=== PATIENT | female | born 1980 | race Caucasian/White ===

== ENCOUNTER 2017-11-26 15:09 | Outpatient (CLI) | payer BC | END 2017-11-26 15:10 | disposition home or self-care (01) | LOC: BICULT 15:09 | PROVIDERS: ATTEND Family Medicine | DX: E04.1 Nontoxic single thyroid nodule (principal); E04.2 Nontoxic multinodular goiter; E07.9 Disorder of thyroid, unspecified | CPT/HCPCS: 76536 ==

== ENCOUNTER 2017-12-02 10:07 | Day surgery (SDC) | payer BC ==
[2017-12-02] MEDS ORDERED: Lidocaine 1% PF 5 ML VIAL ONE (10:32)
[2017-12-02 13:59] VITALS: BP 152/93; TEMP 98.2
--- NOTE | 2017-12-02 14:12 | ULT ---
SONOGRAPHIC GUIDED FINE NEEDLE ASPIRATION RIGHT THYROID LOBE MASS: Date: 12/02/17 HISTORY: Right thyroid lobe mass. FINDINGS: After explaining the procedure and answering all questions, limited sonographic imaging of the right thyroid lobe confirms complex mass at the medial margin. Sterile technique, buffered local anesthesia , sonographic guidance, and a medial approach were used to carefully advance a 25 gauge needle to the solid component of the complex mass. A total of four FNA passes were made. Tissue submitted to patho logy of evaluation. Postprocedure imaging shows no evidence of complication. The patient tolerated th e procedure well and was dismissed in good condition. IMPRESSION: Technically successful sonographic guided FNA right thyroid lobe mass. Pathology is pending. POS: KACIE
== END 2017-12-02 11:30 | disposition home or self-care (01) ==
LOC: ULT 10:07
PROVIDERS: ATTEND Family Medicine
PROC: 0GBH3ZX Excision of Right Thyroid Gland Lobe, Percutaneous Approach, Diagnostic (ICD-10-PCS; principal; 2017-12-02)
DX: E07.89 Other specified disorders of thyroid (principal); I10 Essential (primary) hypertension; K21.9 Gastro-esophageal reflux disease without esophagitis; F32.9 Major depressive disorder, single episode, unspecified; E66.01 Morbid (severe) obesity due to excess calories; Z79.899 Other long term (current) drug therapy; Z87.891 Personal history of nicotine dependence; Z68.42 Body mass index [BMI] 45.0-49.9, adult
CPT/HCPCS: 10022; 76942; 88173; J2001

== ENCOUNTER 2019-02-11 13:44 | Outpatient (CLI) | payer BC ==
--- NOTE | 2019-02-11 15:43 | ULT ---
THYROID ULTRASOUND: 02/11/19 PROVIDED CLINICAL HISTORY: Thyroid nodules. FINDINGS: Comparison is made with the study dated 11/26/17. The right thyroid lobe measures about 5.4 x 2 x 1.9 cm. There is a 2.4 cm cystic and solid nodule at the inferior pole of the right thyroid lobe appearing similar to the prior examination. There is an approximately 1 cm inferior pole cystic and solid nodule immediately adjacent to this larger nodule t hat appears stable. The left thyroid lobe measures about 4.4 x 1.8 x 1.7 cm. There is a isoechoic to slightly hypoechoic nodule involving the inferior pole of the left thyroid lobe that appears solid. This measures about 1.6 x 1.1 x 1.4 cm on the current study, slightly larger than on comparison examination. Additional s ubcentimeter nodules are seen. IMPRESSION: Redemonstration of bilateral thyroid nodules as described above. POS: OFF
== END 2019-02-11 13:45 | disposition home or self-care (01) ==
LOC: BICULT 13:44
PROVIDERS: ATTEND Otolaryngology Plastic Surgery within the Head & Neck
DX: E04.2 Nontoxic multinodular goiter (principal)
CPT/HCPCS: 76536

== ENCOUNTER 2019-06-05 12:27 | Outpatient (CLI) | payer BC ==
--- NOTE | 2019-06-05 13:23 | MMO ---
Bilateral MAMMO Bilat Screen [facility]. CLINICAL HISTORY: Patient is 39 years old and is seen for screening. The patient has the following family history of breast cancer: maternal grandmother. The patient has no personal history of cancer. VIEWS: The views performed were: bilateral craniocaudal with tomosynthesis and bilateral mediolateral oblique with tomosynthesis. This study has been interpreted with the assistance of computer-aided detection. MAMMOGRAM FINDINGS: There are scattered fibroglandular densities. There are no suspicious masses, suspicious calcifications, or new areas of architectural distortion. IMPRESSION: THERE IS NO MAMMOGRAPHIC EVIDENCE OF MALIGNANCY. A ROUTINE FOLLOW-UP MAMMOGRAM IN 1 YEAR IS RECOMMENDED. THE RESULTS OF THIS EXAM WERE SENT TO THE PATIENT. ACR BI-RADS Category 1 - Negative MAMMOGRAPHY NOTE: 1. A negative mammogram report should not delay a biopsy if a dominant of clinically suspicious mass is present. 2. Approximately 10% to 15% of breast cancers are not detected by mammography. 3. Adenosis and dense breasts may obscure an underlying neoplasm. Reported by: CHANEL RAY MD Electonically Signed: [id number]
== END 2019-06-05 12:28 | disposition home or self-care (01) ==
LOC: BICMAMMO 12:27 → ULT 12:28
PROVIDERS: ATTEND Family Medicine
DX: Z12.31 Encounter for screening mammogram for malignant neoplasm of breast (principal); R01.1 Cardiac murmur, unspecified; I08.3 Combined rheumatic disorders of mitral, aortic and tricuspid valves; Z80.3 Family history of malignant neoplasm of breast
CPT/HCPCS: 77063; 77067; 93306

== ENCOUNTER 2020-01-12 14:46 | Outpatient (CLI) | payer BC ==
--- NOTE | 2020-01-12 16:07 | ULT ---
LIMITED LEFT BREAST ULTRASOUND: 01/12/20 HISTORY: 39-year-old female with two separate palpable nodules at the 10 o'clock position of the left breast. FINDINGS: Correlation is made with mammogram same date Sonographic evaluation of the region of palpable abnormality at the 10 o'clock position of the left b reast, 6 cm from the nipple demonstrates an 8 x 3 x 5 mm septated cyst. A single abnormality is noted on the ultrasound. IMPRESSION: BIRADS 2: Benign Finding(s) Routine annual screening mammography (for women over age 40). POS: OFF
--- NOTE | 2020-01-12 16:19 | MMO ---
Left Breast MAMMO Unilat Diag [facility]. CLINICAL HISTORY: Patient is 39 years old and is seen for diagnostic exam. The patient has the following family history of breast cancer: maternal grandmother. The patient has no personal history of cancer. VIEWS: The views performed were: left craniocaudal with tomosynthesis; left mediolateral oblique with tomosynthesis; and left mediolateral with tomosynthesis. FILMS COMPARED: The present examination has been compared to prior imaging studies performed at [facility] on 06/05/2019 and 01/12/2020. This study has been interpreted with the assistance of computer-aided detection. MAMMOGRAM FINDINGS: There are scattered fibroglandular densities. There are benign appearing calcifications in the left breast. No mammo abnormality is seen at site of palpable concern (10:00). US shows a 8mm septated cyst. There are no suspicious masses, suspicious calcifications, or new areas of architectural distortion. IMPRESSION: THERE IS NO MAMMOGRAPHIC EVIDENCE OF MALIGNANCY. A ROUTINE FOLLOW-UP MAMMOGRAM IN 1 YEAR IS RECOMMENDED. THE RESULTS OF THIS EXAM WERE SENT TO THE PATIENT. ACR BI-RADS Category 2 - Benign finding MAMMOGRAPHY NOTE: 1. A negative mammogram report should not delay a biopsy if a dominant of clinically suspicious mass is present. 2. Approximately 10% to 15% of breast cancers are not detected by mammography. 3. Adenosis and dense breasts may obscure an underlying neoplasm. Reported by: MARIA TERESA BARRETT MD Electonically Signed: [id number]
== END 2020-01-12 14:47 | disposition home or self-care (01) ==
LOC: BICMAMMO 14:46
PROVIDERS: ATTEND Family Medicine
DX: N63.20 Unspecified lump in the left breast, unspecified quadrant (principal)
CPT/HCPCS: G0279

== ENCOUNTER 2021-07-03 09:26 | Outpatient (CLI) | payer BC | END 2021-07-03 09:27 | disposition home or self-care (01) | LOC: BICMAMMO 09:26 | PROVIDERS: ATTEND Family Medicine | DX: Z12.31 Encounter for screening mammogram for malignant neoplasm of breast (principal); Z80.3 Family history of malignant neoplasm of breast | CPT/HCPCS: 77063; 77067 ==

== ENCOUNTER 2021-07-03 17:15 | Emergency (ER) | payer BC ==
[2021-07-03] MEDS ORDERED: Metoprolol Tartrate 25 MG TAB ONE (18:36)
[2021-07-03 18:57] LABS: #Basophils 0.1 thou/uL (0.0-0.2); #Eosinphils 0.2 thou/uL (0.0-0.7); #Lymphocytes 3.1 thou/uL (1.20-3.40); #Monocytes 0.6 thou/uL (0.11-0.59); #Neutrophils 6.9 thou/uL (1.40-6.50); %Basophils 0.7 % (0.0-1.0); %Eosinophils 1.6 % (0.0-10.0); %Lymphocytes 28.7 % (21.0-51.0); %Monocytes 5.6 % (0.0-10.0); %Neutrophils 63.5 % (42.0-75.0); Hemoglobin 11.8 g/dL (12.0-16.0); Mean Corpuscular Hemoglobin 28.1 pg (27.0-31.0); Mean Corpuscular Volume 85.2 fL (78.0-98.0); Mean Platelet Volume 5.9 fL (7.4-10.4); Platelet Count 342 thou/uL (130-400); RBC Distribution Width 12.8 % (11.5-14.5); White Blood Cell (WBC) Count 10.8 thou/uL (4.8-10.8)
[2021-07-03 19:19] LABS: ALT (SGPT) 16 U/L (8-55); AST (SGOT) 14 U/L (5-34); Albumin 3.7 g/dL (3.5-5.0); Alkaline Phosphatase 70 U/L (40-110); Anion Gap 13 mmol/L (10-20); BUN (Urea Nitrogen) 12 mg/dL (7.0-18.7); Bilirubin, Total 0.3 mg/dL (0.2-1.2); Calc. Creatinine Clearance 0 mL/min (70-130); Calcium 9.8 mg/dL (7.8-10.44); Carbon Dioxide 27 mmol/L (22-29); Chloride 103 mmol/L (98-107); Globulin 3.2 g/dL (2.4-3.5); Glucose 97 mg/dL (70-105); Potassium 3.9 mmol/L (3.5-5.1); Protein, Total 6.9 g/dL (6.0-8.3); Sodium 139 mmol/L (136-145)
== END 2021-07-03 19:34 | disposition home or self-care (01) ==
LOC: ERS 17:15
DX: I10 Essential (primary) hypertension (principal); Z79.899 Other long term (current) drug therapy
CPT/HCPCS: 36415; 80053; 85025; 93005

== ENCOUNTER 2022-03-01 14:43 | Emergency (ER) | payer BC ==
[2022-03-01 15:36] LABS: #Basophils 0.1 thou/uL (0.0-0.2); #Eosinphils 0.1 thou/uL (0.0-0.7); #Lymphocytes 2.1 thou/uL (1.20-3.40); #Monocytes 0.6 thou/uL (0.11-0.59); #Neutrophils 6.2 thou/uL (1.40-6.50); %Basophils 0.7 % (0.0-1.0); %Eosinophils 1.2 % (0.0-10.0); %Lymphocytes 23.5 % (21.0-51.0); %Monocytes 6.4 % (0.0-10.0); %Neutrophils 68.2 % (42.0-75.0); Hemoglobin 11.7 g/dL (12.0-16.0); Mean Corpuscular HGB CONC 31.1 g/dL (32.0-36.0); Mean Corpuscular Hemoglobin 27.2 pg (27.0-31.0); Mean Corpuscular Volume 87.5 fl (78.0-98.0); Mean Platelet Volume 6.7 fL (7.4-10.4); Platelet Count 342 thou/uL (130-400); RBC Distribution Width 13.1 % (11.5-14.5); White Blood Cell (WBC) Count 9.1 thou/uL (4.8-10.8)
[2022-03-01] MEDS ORDERED: Ketorolac Tromethamine 30 MG/ML VIAL ONE (15:46)
[2022-03-01 15:56] LABS: ALT (SGPT) 16 U/L (8-55); AST (SGOT) 16 U/L (5-34); Albumin 3.8 g/dL (3.5-5.0); Alkaline Phosphatase 75 U/L (40-110); Anion Gap 13 mmol/L (10-20); BUN (Urea Nitrogen) 16 mg/dL (7.0-18.7); Bilirubin, Total 0.2 mg/dL (0.2-1.2); Calc. Creatinine Clearance 0 mL/min (70-130); Calcium 9.2 mg/dL (7.8-10.44); Carbon Dioxide 25 mmol/L (22-29); Chloride 105 mmol/L (98-107); Estimated GFR 81; Globulin 3.5 g/dL (2.4-3.5); Glucose 97 mg/dL (70-105); Potassium 3.8 mmol/L (3.5-5.1); Protein, Total 7.3 g/dL (6.0-8.3); Sodium 139 mmol/L (136-145)
[2022-03-01 15:59] LABS: Bilirubin Negative (Negative); Blood, Urine Negative (Negative); Clarity Clear (Clear); Glucose, Urine (Dipstick) Normal (Negative); Ketone, Urine Negative (Negative); Leukocyte Negative Leu/uL (Negative); Nitrite Negative (Negative); Protein, Urine (Dipstick) Negative (Neg-Trace); Specific Gravity, Urine 1.026 (1.002-1.036)
[2022-03-01 16:00] LABS: Pregnancy Test - Urine (BHCG) Negative (Negative); Pregu Control Background? CLEAR/WHITE (CLR/WHITE); Pregu Control Bar Appear? YES (CONTROL BAR); Specific Gravity 1.026 (1.002-1.036)
== END 2022-03-01 17:52 | disposition home or self-care (01) ==
LOC: ERS 14:43
DX: M54.50 Low back pain, unspecified (principal); I10 Essential (primary) hypertension
CPT/HCPCS: 36415; 74176; 80053; 81003; 81025; 85025; 96374; J1885

== ENCOUNTER 2022-03-14 15:50 | Outpatient (CLI) | payer BC | END 2022-03-14 15:51 | disposition home or self-care (01) | LOC: BICRAD 15:50 | PROVIDERS: ATTEND Family Medicine | DX: M54.6 Pain in thoracic spine (principal); M54.50 Low back pain, unspecified; M47.814 Spondylosis without myelopathy or radiculopathy, thoracic region; M47.816 Spondylosis without myelopathy or radiculopathy, lumbar region; M51.34 Other intervertebral disc degeneration, thoracic region; M51.36 Other intervertebral disc degeneration, lumbar region | CPT/HCPCS: 72072; 72100 ==

== ENCOUNTER 2022-08-23 11:03 | Outpatient (CLI) | payer BC | END 2022-08-23 11:04 | disposition home or self-care (01) | LOC: BICMAMMO 11:03 | PROVIDERS: ATTEND Family Medicine | DX: Z12.31 Encounter for screening mammogram for malignant neoplasm of breast (principal) | CPT/HCPCS: 77063; 77067 ==

== ENCOUNTER 2023-02-19 15:36 | Outpatient (CLI) | payer BC | END 2023-02-19 15:37 | disposition home or self-care (01) | LOC: ULT 15:36 | PROVIDERS: ATTEND Otolaryngology Plastic Surgery within the Head & Neck | DX: E04.1 Nontoxic single thyroid nodule (principal); E07.9 Disorder of thyroid, unspecified | CPT/HCPCS: 76536 ==

== ENCOUNTER 2024-06-04 15:44 | Outpatient (CLI) | payer BC | END 2024-06-04 15:45 | disposition home or self-care (01) | LOC: BICULT 15:44 | PROVIDERS: ATTEND Otolaryngology Plastic Surgery within the Head & Neck | DX: E04.2 Nontoxic multinodular goiter (principal) | CPT/HCPCS: 76536 ==